=== PATIENT | male | born 1965 | race Caucasian/White ===

== ENCOUNTER 2017-10-11 08:07 | Day surgery (SDC) | payer BC ==
[2017-10-11] MEDS: NS 1,000 ML IV (08:23)
[2017-10-11] MEDS ORDERED: PROPOFOL 200 MG/20 ML VIAL As Ordered ×2 (08:47)
[2017-10-11] MEDS ORDERED: LIDOCAINE 2% INJ 100 MG/5 ML SDV (FOR ANES.) As Ordered (08:47)
== END 2017-10-11 10:05 | disposition home or self-care (01) ==
LOC: M OPP 08:07
DX: Z12.11 Encounter for screening for malignant neoplasm of colon (principal); K64.0 First degree hemorrhoids; K57.30 Diverticulosis of large intestine without perforation or abscess without bleeding; K21.9 Gastro-esophageal reflux disease without esophagitis; R12 Heartburn; Z79.899 Other long term (current) drug therapy; Z80.1 Family history of malignant neoplasm of trachea, bronchus and lung; Z80.49 Family history of malignant neoplasm of other genital organs; Z80.8 Family history of malignant neoplasm of other organs or systems
CPT/HCPCS: G0121

== ENCOUNTER → 2018-03-16 | Outpatient (REF) | payer BC | LOC: M LAB REF 09:41 | DX: J02.9 Acute pharyngitis, unspecified (principal) ==

== ENCOUNTER → 2019-11-18 | Outpatient (REF) | payer BC ==
[~2019-11-18] MED LIST: MULT1TAB10 PO; PRIL20CA9 PO
[2019-11-18 13:36] LABS: INFLUENZA A AMPLIFICATION NEGATIVE (NEGATIVE); INFLUENZA B AMPLIFICATION NEGATIVE (NEGATIVE)
== END ==
LOC: M LAB REF 12:28
PROVIDERS: ATTEND Physician Assistant
DX: J11.1 Influenza due to unidentified influenza virus with other respiratory manifestations (principal)

== ENCOUNTER → 2020-12-26 | Outpatient (CLI) | payer BC ==
--- NOTE | 2020-12-26 08:56 | REP ---
INDICATION: CHRONIC COUGH COMPARISON: None. TECHNIQUE: PA and lateral. FINDINGS: The mediastinum and cardiac silhouette are normal. The lung guardado are clear and without acute consolidation, effusion, or pneumothorax. The skeletal structures are intact and normal. IMPRESSION: No acute cardiopulmonary process. <Electronically signed by Cory Tovar > 12/26/20 0853
== END ==
LOC: M WUC 08:42
PROVIDERS: ATTEND Internal Medicine
DX: R05 Cough (principal)

== ENCOUNTER → 2020-12-26 | Outpatient (CLI) | payer BC | LOC: M WUC 08:39 | PROVIDERS: ATTEND Internal Medicine | DX: Z53.8 Procedure and treatment not carried out for other reasons (principal) ==

== ENCOUNTER → 2022-01-01 | Outpatient (REF) | payer BC ==
[2022-01-01 13:44] LABS: C REACTIVE PROTEIN QUANTITATIV < 0.30 MG/DL (0.00-0.30); RHEUMATOID FACTOR QUANT < 10.0 IU/ML (<15.0)
== END ==
LOC: M LAB REF 12:23
PROVIDERS: ATTEND Internal Medicine
DX: M25.50 Pain in unspecified joint (principal)

== ENCOUNTER → 2022-01-26 | Outpatient (CLI) | payer BC ==
[2022-01-27 17:07] LABS: TESTOSTERONE FREE (DIRECT) 10.1 pg/mL (7.2-24.0)
== END ==
LOC: M PLALAB 11:28
PROVIDERS: ATTEND Urology
DX: R86.8 Other abnormal findings in specimens from male genital organs (principal)

== ENCOUNTER → 2022-01-26 | Outpatient (REF) | payer BC ==
[2022-01-26 13:06] LABS: APPEARANCE, URINE CLEAR (CLEAR); BACTERIA, URINE AUTO NEGATIVE (NEGATIVE); BILIRUBIN, URINE AUTO NEGATIVE (NEGATIVE); BLOOD, URINE BLOOD NEGATIVE (NEGATIVE); COLOR, URINE STRAW (YELLOW); GLUCOSE, URINE (UA) AUTO NEGATIVE (NEGATIVE); KETONE, URINE AUTO NEGATIVE (NEGATIVE); LEUKOCYTE ESTERASE, URINE AUTO NEGATIVE (NEGATIVE); NITRITE, URINE AUTO NEGATIVE (NEGATIVE); PROTEIN, URINE AUTO NEGATIVE (NEGATIVE); RBC, URINE AUTO 0 /HPF (0-3); SPECIFIC GRAVITY URINE AUTO 1.004 (1.002-1.035); SQUAMOUS EPITHELIAL CELL UR AU 0 /HPF (0-6); UROBILINOGEN, URINE AUTO 0.2 mg/dL (0.0-2.0); WBC, URINE AUTO 0 /HPF (0-3)
== END ==
LOC: M SMT 12:53
PROVIDERS: ATTEND Urology
DX: R39.89 Other symptoms and signs involving the genitourinary system (principal)

== ENCOUNTER 2022-07-26 10:52 | Outpatient (RCR) | payer BC | END 2022-07-30 23:59 | disposition home or self-care (01) | LOC: M PT 10:52 | PROVIDERS: ATTEND Physician Assistant | DX: M51.34 Other intervertebral disc degeneration, thoracic region (principal) ==

== ENCOUNTER 2022-08-08 13:35 | Outpatient (RCR) | payer BC | END 2022-08-29 | LOC: M PT 13:35 | PROVIDERS: ATTEND Physician Assistant | DX: M51.34 Other intervertebral disc degeneration, thoracic region (principal) ==

== ENCOUNTER → 2022-09-18 | Outpatient (CLI) | payer BC ==
[2022-09-18 17:42] LABS: URIC ACID 6.6 MG/DL (3.7-9.2)
[2022-09-18 17:46] LABS: C REACTIVE PROTEIN QUANTITATIV < 0.40 MG/DL (<1.0)
[2022-09-18 17:47] LABS: RHEUMATOID FACTOR QUANT < 3.5 IU/ML (<14)
== END ==
LOC: M WUC 10:24
PROVIDERS: ATTEND Physician Assistant
DX: M51.34 Other intervertebral disc degeneration, thoracic region (principal)

== ENCOUNTER 2023-01-25 11:21 | Outpatient (RCR) | payer BC | END 2023-01-27 | LOC: M PT 11:21 | PROVIDERS: ATTEND Physician Assistant | DX: M51.34 Other intervertebral disc degeneration, thoracic region (principal) ==

== ENCOUNTER → 2023-01-28 | Outpatient (CLI) | payer BC ==
[2023-01-28 13:31] LABS: PLATELET COUNT, AUTOMATED 225 10^3/uL (150-450)
[2023-01-28 13:41] LABS: INR 0.93; PARTIAL THROMBOPLASTIN TIME 24.7 SECONDS (24.8-34.2); PROTHROMBIN TIME 12.7 SECONDS (12.5-14.5)
== END ==
LOC: M LAB 13:02
PROVIDERS: ATTEND Physician Assistant
DX: Z01.818 Encounter for other preprocedural examination (principal)

== ENCOUNTER 2023-01-31 09:31 | Outpatient (RCR) | payer BC | END 2023-02-27 | LOC: M PT 09:31 | PROVIDERS: ATTEND Physician Assistant | DX: M51.34 Other intervertebral disc degeneration, thoracic region (principal) ==

== ENCOUNTER 2023-11-27 21:49 | Emergency (ER) | payer BC, OTHER ==
[~2023-11-27] VITALS: Ht 175.3 cm; Wt 81.1 kg
[2023-11-27] MEDS ORDERED: AMOX250C3 PO (22:36)
[2023-11-27 22:41] LABS: BASO # 0.1 10^3/uL (0.0-0.2); BASO % 0.7 % (0.0-1.0); EOS # 0.1 10^3/uL (0.0-0.5); EOS % 0.7 % (0.0-3.0); HEMATOCRIT 41.5 % (42.0-52.0); LYMPH # 1.7 10^3/uL (1.5-5.0); LYMPH % 15.5 % (24.0-44.0); MEAN CORPUSCULAR HGB CONC 36.1 g/dl (32.0-36.5); MEAN CORPUSCULAR VOLUME 85.7 fl (80.0-96.0); MONO # 0.9 10^3/uL (0.0-0.8); MONO % 8.3 % (2.0-8.0); NEUTROPHILS # 7.9 10^3/uL (1.5-8.5); NEUTROPHILS % 74.4 % (36.0-66.0); PLATELET COUNT, AUTOMATED 219 10^3/uL (150-450); RED BLOOD COUNT 4.84 10^6/uL (4.30-6.10); WHITE BLOOD COUNT 10.6 10^3/uL (4.0-10.0)
[2023-11-27 23:13] LABS: CK-MB VALUE MASS < 1.0 NG/ML (<3.6)
[2023-11-27 23:15] LABS: BLOOD UREA NITROGEN 24 MG/DL (9-23); CALCIUM LEVEL 9.2 MG/DL (8.5-10.1); CARBON DIOXIDE LEVEL 27 MMOL/L (20-31); CHLORIDE LEVEL 107 MMOL/L (98-107); CPK CREATINE PHOSPHOKINASE 80 U/L (46-171); CREATININE FOR GFR 0.88 MG/DL (0.70-1.30); GLOMERULAR FILTRATION RATE > 60.0 (>56); GLUCOSE, FASTING 95 MG/DL (60-100); MB/CK RELATIVE INDEX 1.25 (< OR =4); POTASSIUM SERUM 4.1 MMOL/L (3.5-5.1); SODIUM LEVEL 141 MMOL/L (136-145)
[2023-11-27] MEDS: NS 1,000 ML IV ONE (23:29)
[2023-11-28 00:04] LABS: CK-MB VALUE MASS < 1.0 NG/ML (<3.6); CPK CREATINE PHOSPHOKINASE 70 U/L (46-171); MB/CK RELATIVE INDEX 1.42 (< OR =4)
[2023-11-28 01:55] VITALS: BP 135/76; TEMP 98.8; O2SAT 98
== END 2023-11-28 01:55 | disposition home or self-care (01) ==
LOC: M ED 21:49
DX: R07.89 Other chest pain (principal); K21.9 Gastro-esophageal reflux disease without esophagitis; R42 Dizziness and giddiness; Z79.899 Other long term (current) drug therapy

== ENCOUNTER → 2025-05-10 | Outpatient (CLI) | payer BC ==
[~2025-05-10] MED LIST changes: +AMOX250C3 PO
== END ==
LOC: M PLAIMG 07:18
PROVIDERS: ATTEND Internal Medicine
DX: M54.12 Radiculopathy, cervical region (principal); M48.02 Spinal stenosis, cervical region